=== PATIENT | male | born 1945 | race Caucasian/White ===

== ENCOUNTER 2017-05-22 08:40 | Outpatient (RCR) | payer MEDICARE, BC | END 2017-05-24 | disposition home or self-care (01) | PROVIDERS: ATTEND Nurse Practitioner | DX: M25.511 Pain in right shoulder; Z98.890 Other specified postprocedural states ==

== ENCOUNTER 2017-06-30 13:00 | Outpatient (RCR) | payer MEDICARE, BC | END 2017-08-24 | disposition home or self-care (01) | PROVIDERS: ATTEND Nurse Practitioner | DX: M25.511 Pain in right shoulder (principal); Z98.890 Other specified postprocedural states ==

== ENCOUNTER 2018-05-20 05:06 | Emergency (ER) | payer MEDICARE, BC ==
[~2018-05-20] VITALS: Ht 177.8 cm; Wt 97.5 kg
[2018-05-20] MEDS ORDERED: ONDANSETRON 4 MG (ZOFRAN) ORAL DISSOLVE TAB ONE (05:16)
[2018-05-20] MEDS ORDERED: ONDANSETRON 4 MG (ZOFRAN) ORAL DISSOLVE TAB SL STA (05:19)
[2018-05-20] MEDS ORDERED: ANTACID SUSP 30 ML UDC (MYLANTA) PO ONE (05:30)
[2018-05-20] MEDS ORDERED: LIDOCAINE 2% VISCOUS 15 ML UDC PO ONE (05:30)
[2018-05-20 05:40] LABS: BASOPHILS % (AUTO) 0 % (0-10); EOSINOPHILS # (AUTO) 0.3 10^3/uL (0.0-0.3); EOSINOPHILS % (AUTO) 4 % (0-10); HEMATOCRIT 35 % (40-54); HEMOGLOBIN 12.7 G/DL (13.3-17.7); LYMPHOCYTES # (AUTO) 1.7 X 10^3 (1.0-4.0); LYMPHOCYTES % (AUTO) 22 % (12-44); MEAN CORPUSCULAR HEMOGLOBIN 34 PG (25-34); MEAN CORPUSCULAR HGB CONC 36 G/DL (32-36); MEAN CORPUSCULAR VOLUME 93 FL (80-99); MEAN PLATELET VOLUME 9.3 FL (7.4-10.4); MONOCYTES # (AUTO) 0.6 X 10^3 (0.0-1.0); MONOCYTES % (AUTO) 8 % (0-12); NEUTROPHILS # (AUTO) 5.1 X 10^3 (1.8-7.8); NEUTROPHILS % (AUTO) 66 % (42-75); PLATELET COUNT 186 10^3/uL (130-400); RED BLOOD COUNT 3.77 10^6/uL (4.35-5.85); WHITE BLOOD COUNT 7.7 10^3/uL (4.3-11.0)
[2018-05-20 05:41] LABS: BILIRUBIN,URINE NEGATIVE (NEGATIVE); COLOR,URINE YELLOW; GLUCOSE, URINE (UA) NEGATIVE (NEGATIVE); KETONES,URINE NEGATIVE (NEGATIVE); LEUKOCYTE ESTERASE ,URINE 1+ (NEGATIVE); NITRITE,URINE NEGATIVE (NEGATIVE); PH,URINE 7 (5-9); PROTEIN,URINE 1+ (NEGATIVE); UROBILINOGEN,URINE NORMAL (NORMAL)
[2018-05-20 05:48] LABS: BACTERIA,URINE NEGATIVE /HPF; CLARITY,URINE CLEAR; SQUAMOUS EPITHELIAL CELL,UR RARE /HPF
--- NOTE | 2018-05-20 05:57 | ED Abdominal Pain ---
General Chief Complaint: Abdominal/GI Problems Stated Complaint: ABD PAIN Nursing Triage Note: AMBULATORY TO ED WITH C/O PAIN STARTING MID-EPIGASTRIC THAT RADIATES TO BACK THAT STARTED YESTERDAY. NAUSEA EARLIER THAT IS NOW RESOLVED, DENIES CONSTIPATION OR DIARRHEA. DENIES FEVERS/CHILLS. Sepsis Screen: No Definite Risk Source of Information: Patient Exam Limitations: No Limitations (ИВАН SEWELL MD) History of Present Illness Date Seen by Provider: May 20, 2018 Time Seen by Provider: 05:11 Initial Comments This 73-year-old gentleman presents to the emergency room with epigastric pain radiating to his back. He has had more mild episodes of this pain intermittently over the last month. Pain was fairly consistent yesterday. He rates the pain as 6/10 at its worst. It is now 4-5/10. He had some nausea earlier which has resolved. He denies any constipation or diarrhea. His last bowel movement was about 2 hours prior to arrival. It was normal. He denies any fever. He has darker urine than usual but denies any dysuria or hematuria. Last oral intake was some water and baking soda around 01:00. (ИВАН SEWELL MD) Initial Comments Last BM yesterday normal. Hx CABG on ASA. no Pain radiates to the rear towards back. (RUBÉN DE LA TORRE) Allergies and Home Medications Allergies Coded Allergies: No Known Drug Allergies (Unverified , 05/20/18) Patient Home Medication List Home Medication List Reviewed: Yes (ИВАН SEWELL MD) Home Medication List Reviewed: Yes (RUBÉN DE LA TORRE) Review of Systems Review of Systems Constitutional: no symptoms reported EENTM: No Symptoms Reported Respiratory: No Symptoms Reported Cardiovascular: No Symptoms Reported Gastrointestinal: See HPI Genitourinary: See HPI Musculoskeletal: no symptoms reported Skin: no symptoms reported Psychiatric/Neurological: No Symptoms Reported Endocrine: No Symptoms Reported Hematologic/Lymphatic: No Symptoms Reported (ИВАН SEWELL MD) Past Fkvsfjc-Rdqafy-Hgkdht Hx Past Med/Social Hx: Reviewed and Corrections made (ИВАН SEWELL MD) Patient Social History Alcohol Use: Occasionally Uses Recreational Drug Use: No Smoking Status: Light Tobacco Smoker Type Used: Cigars Recent Foreign Travel: No Contact w/Someone Who Travel: No Recent Infectious Disease Expo: No Recent Hopitalizations: No (ИВАН SEWELL MD) Seasonal Allergies Seasonal Allergies: No (ИВАН SEWELL MD) Past Medical History Surgeries: Yes (BILAT CARPAL TUNNEL, RIGHT ROTATOR CUFF, CABG 15-16 YRS AGO) CABG, Orthopedic Respiratory: No Cardiac: Yes Coronary Artery Disease (status post CABG), Hypertension Neurological: No Genitourinary: No Gastrointestinal: No Musculoskeletal: No Endocrine: Yes (TYPE 2 INSULIN DEPENDENT ) Diabetes, Insulin dep HEENT: No Cancer: No Psychosocial: No Blood Disorders: No (ИВАН SEWELL MD) Physical Exam Vital Signs Vital Signs - First Documented 05/20/18 05:13 Temp 96.5 Pulse 53 Resp 19 B/P (MAP) 144/76 (98) (RUBÉN DE LA TORRE) Vital Signs Capillary Refill : Less Than 3 Seconds (ИВАН SEWELL MD) Height/Weight/BMI Height: 5'10.00" Weight: 215lbs. oz. 97.849277ue; BMI Method:Stated General Appearance: WD/WN, no apparent distress HEENT: PERRL/EOMI, normal ENT inspection Neck: normal inspection Respiratory: lungs clear, normal breath sounds, no respiratory distress, no accessory muscle use Cardiovascular: regular rate, rhythm, no edema, no murmur Gastrointestinal: normal bowel sounds, soft, no organomegaly, no pulsatile mass ; No guarding, No rebound; tenderness (tenderness primarily in the epigastric region and to a lesser extent in the upper quadrants laterally.) Extremities: normal inspection, no pedal edema Neurologic/Psychiatric: sterile tech II-XII nml as tested, no motor/sensory deficits, alert, normal mood/affect, oriented x 3 Skin: normal color, warm/dry (ИВАН SEWELL MD) Progress/Results/Core Measures Results/Orders Lab Results Laboratory Tests Test 05/20/18 05:28 Range/Units White Blood Count 7.7 4.3-11.0 10^3/uL Red Blood Count 3.77 L 4.35-5.85 10^6/uL Hemoglobin 12.7 L 13.3-17.7 G/DL Hematocrit 35 L 40-54 % Mean Corpuscular Volume 93 80-99 FL Mean Corpuscular Hemoglobin 34 25-34 PG Mean Corpuscular Hemoglobin Concent 36 32-36 G/DL Red Cell Distribution Width 13.0 10.0-14.5 % Platelet Count 186 130-400 10^3/uL Mean Platelet Volume 9.3 7.4-10.4 FL Neutrophils (%) (Auto) 66 42-75 % Lymphocytes (%) (Auto) 22 12-44 % Monocytes (%) (Auto) 8 0-12 % Eosinophils (%) (Auto) 4 0-10 % Basophils (%) (Auto) 0 0-10 % Neutrophils # (Auto) 5.1 1.8-7.8 X 10^3 Lymphocytes # (Auto) 1.7 1.0-4.0 X 10^3 Monocytes # (Auto) 0.6 0.0-1.0 X 10^3 Eosinophils # (Auto) 0.3 0.0-0.3 10^3/uL Basophils # (Auto) 0.0 0.0-0.1 10^3/uL Urine Color YELLOW Urine Clarity CLEAR Urine pH 7 5-9 Urine Specific [place] 1.010 L 1.016-1.022 Urine Protein 1+ H NEGATIVE Urine Glucose (UA) NEGATIVE NEGATIVE Urine Ketones NEGATIVE NEGATIVE Urine Nitrite NEGATIVE NEGATIVE Urine Bilirubin NEGATIVE NEGATIVE Urine Urobilinogen NORMAL NORMAL MG/DL Urine Leukocyte Esterase 1+ H NEGATIVE Urine RBC (Auto) NEGATIVE NEGATIVE Urine RBC NONE /HPF Urine WBC NONE /HPF Urine Squamous Epithelial Cells RARE /HPF Urine Crystals NONE /LPF Urine Bacteria NEGATIVE /HPF Urine Casts NONE /LPF Urine Mucus NEGATIVE /LPF Urine Culture Indicated NO Sodium Level 141 135-145 MMOL/L Potassium Level 4.0 3.6-5.0 MMOL/L Chloride Level 106 98-107 MMOL/L Carbon Dioxide Level 24 21-32 MMOL/L Anion Gap 11 5-14 MMOL/L Blood Urea Nitrogen 20 H 7-18 MG/DL Creatinine 1.26 0.60-1.30 MG/DL Estimat Glomerular Filtration Rate 56 BUN/Creatinine Ratio 16 Glucose Level 109 H 70-105 MG/DL Calcium Level 9.6 8.5-10.1 MG/DL Corrected Calcium 9.4 8.5-10.1 MG/DL Total Bilirubin 0.4 0.1-1.0 MG/DL Aspartate Amino Transf (AST/SGOT) 22 5-34 U/L Alanine Aminotransferase (ALT/SGPT) 19 0-55 U/L Alkaline Phosphatase 36 L 40-136 U/L Total Protein 7.2 6.4-8.2 GM/DL Albumin 4.3 3.2-4.5 GM/DL Lipase 26 8-78 U/L (RUBÉN DE LA TORRE) My Orders Orders - RUBÉN DE LA TORRE Ct Abdomen/Pelvis W (05/20/18 06:10) Ondansetron Injection (Zofran Injectio (05/20/18 06:30) Iohexol Injection (Omnipaque 350 Mg/Ml 1 (05/20/18 06:45) Pharmacy Communication (Pharmacy Communi (05/20/18 06:44) Pharmacy Communication (Pharmacy Communi (05/20/18 06:44) Ns (Ivpb) (Sodium Chloride 0.9%) (05/20/18 06:45) Saline Lock/Iv-Start (05/20/18 06:58) Ns Iv 1000 Ml (Sodium Chloride 0.9%) (05/20/18 06:58) Contrast Received (Contrast Received) (05/20/18 07:30) Ketorolac Injection (Toradol Injection) (05/20/18 07:30) Us Gallbladder [id number] (05/20/18 07:25) (RUBÉN DE LA TORRE) Medications Given in ED Current Medications Medications Dose Ordered Sig/Price Route Start Time Stop Time Status Last Admin Dose Admin Al Hydrox/Mg Hydrox/Simethicone 30 ml ONCE ONCE PO 05/20/18 05:30 05/20/18 05:31 DC 05/20/18 05:34 30 ML Iohexol 100 ml ONCE ONCE IV 05/20/18 06:45 05/20/18 07:14 DC 05/20/18 06:48 100 ML Lidocaine HCl 15 ml ONCE ONCE PO 05/20/18 05:30 05/20/18 05:31 DC 05/20/18 05:34 15 ML Ondansetron HCl 4 mg ONCE ONCE IVP 05/20/18 06:30 05/20/18 06:31 DC 05/20/18 06:27 4 MG Sodium Chloride 250 ml ONCE ONCE IV 05/20/18 06:45 05/20/18 07:14 DC 05/20/18 06:49 80 ML (RUBÉN DE LA TORRE) Vital Signs/I&O 9/26/18 05:13 Temp 96.5 Pulse 53 Resp 19 B/P (MAP) 144/76 (98) (RUBÉN DE LA TORRE) Blood Pressure Mean: 98 Progress Progress Note #1: Time: 05:49 Progress Note Labs are pending. Zofran and GI cocktail did not improve pain. Patient still has tenderness in the epigastric region. Pain radiates to the mid back. Progress Note #2: Time: 06:00 Progress Note Labs are still pending. Imaging will be determined after labs are reviewed. Care of this patient was transitioned to Dr. De La Torre at bedside checkout (ИВАН SEWELL MD) Progress Note #1: Progress Note Assumed care of the patient from Dr Latham. I agree with the findings outlined above. The GI cocktail did not help so we will get a CT with Contrast of the Abd/Pelvis to examine the abdpelvic organs and the Abd Aorta. Patient reports the pains been going on for the past month and its not coming with any pattern. Will come at night or during the day but he says is more noticeable at night because is not is distracted. He says it radiates from his epigastric region back to his back. Progress Note #2: Time: 07:23 Progress Note The patient's pain has not changed. Try some Toradol. He did have some more nausea and we are to give him a second dose of Zofran. CT scan is unrevealing. Pushed around on him while he doesn't have a positive Goldberg sign. He does have a little right upper quadrant tenderness so we will elect to do a ultrasound to rule out any other dangerous pathology. If not then we can have him follow-up with his primary care doctor. There is no pattern to his pain such as after meals or with different types of foods. He does have tenderness to palpation midline upper thoracic back so it's possible that instead of this being an epigastric pain radiating to his back is actually having some back pain or that could be secondary. Progress Note #3: Time: 09:54 Progress Note Toradol nearly completely took away his pain. It seems like back pain is a more likely explains his symptoms as CT and ultrasound and labs are unrevealing of any significant pathology. (RUBÉN DE LA TORRE) Diagnostic Imaging Diagonstic Imaging: CT (C/contrast) Plain Films/CT/US/NM/MRI: abdomen, pelvis [facility] [place], [place] NAME: SANTY ALEGRIA [facility] REC#: [id number] PT STATUS: REG ER : 1945 PHYSICIAN: RUBÉN DE LA TORRE MD ADMIT DATE: 05/20/18/ER Draft Date of Exam:05/20/18 CT ABDOMEN/PELVIS W PROCEDURE: CT abdomen and pelvis with contrast. TECHNIQUE: Multiple contiguous axial images were obtained through the abdomen and pelvis after administration of intravenous contrast. INDICATION: Inguinal hernia and abdominal pain There is no focal hepatic or splenic lesion identified. Gallbladder, pancreas and adrenal glands are unremarkable in appearance. There is mild irregularity about renal contours which may be related to scarring from previous infection or other insult, however, no evidence of renal dysfunction or hydronephrosis is identified. There is mild aortoiliac atherosclerotic calcification. The appendix has a normal appearance. There is no free fluid within the abdomen or pelvis. No pathologic adenopathy is identified. Partially opacified urinary bladder demonstrates small right posterolateral diverticulum without evidence of filling defect. There is mild diffuse lumbar spondylosis. IMPRESSION: No CT evidence of acute abnormality in the abdomen or pelvis. In particular, there is no evidence of hernia or bowel obstruction. Dictated on workstation # [id number] Dict: 05/20/18 0654 Trans: 05/20/18 0700 JERRY [id number] Interpreted by: RODOLFO DENNIS MD Electronically signed by: Reviewed: Reviewed by Me Diagonstic Imaging: Ultrasound Plain Films/CT/US/NM/MRI: abdomen (RUQ GB) Comments [facility] [place], [place] NAME: SANTY ALEGRIA [facility] REC#: [id number] PT STATUS: REG ER : 1945 PHYSICIAN: RUBÉN DE LA TORRE MD ADMIT DATE: 05/20/18/ER Draft Date of Exam:05/20/18 US GALLBLADDER [id number] Clinical indication: Patient with abdominal pain. Exam: Ultrasound of the right upper quadrant. Comparison: CT scan of the abdomen and pelvis with contrast dated 05/20/2018. Findings: There is overlying bowel gas which limits evaluation of portions of the abdomen. The liver is partially obscured by overlying bowel gas, but shows no gross liver mass. The liver echogenicity is grossly unremarkable. There is hepatopetal flow in the portal vein. The liver measures 15.9 cm in craniocaudal dimension. There is no significant intra-hepatic or extrahepatic ductal dilation. Common bile duct measures 6.2 mm which is within normal limits for patient's age. Gallbladder is partially obscured by bowel gas. The gallbladder is fluid distended, as noted on the comparison CT scan. There is no significant gallbladder wall thickening or stones. There is no pericholecystic fluid. There is no sonographic Goldberg sign. The pancreatic tail is partially obscured by overlying bowel gas. Otherwise visualized portion of pancreatic head and body are grossly unremarkable. The right kidney shows no significant abnormality with normal anatomic appearance and cortical thickness. There is no mass or hydronephrosis seen. Right kidney measures 11.4 cm in cranial caudal dimension. There is no abdominal ascites. IMPRESSION: 1: Limited exam due to overlying bowel gas. 2: There is no acute or significant abnormality seen on this limited right upper quadrant ultrasound. Dictated on workstation # [id number] Dict: 05/20/18 0857 Trans: 05/20/18 0904 [facility] [id number] Interpreted by: ALVARO BOSE MD Electronically signed by: Reviewed: Reviewed by Me (RUBÉN DE LA TORRE) Departure Impression Primary Impression: Back pain Qualified Codes: M54.5 - Low back pain Additional Impression: Abdominal pain Qualified Codes: R10.13 - Epigastric pain Disposition: 01 HOME, SELF-CARE Condition: Improved Departure-Patient Inst. Decision time for Depature: 09:54 (RUBÉN DE LA TORRE) Referrals: REAL PATINO DO (PCP/Family) Primary Care Physician Patient Instructions: Active Range of Motion Exercises, Back and Hips Add. Discharge Instructions: Try heating pads, icy hot or Biofreeze on your back as well as using Motrin 800 mg 3 times a day for the next week or so. Follow up later this week or early next week with your primary care doctor if not seeing some improvement for further evaluation. If you begin to have severe intractable pain nausea vomiting or fever then return to the ER immediately. All discharge instructions reviewed with patient and/or family. Voiced understanding. Copy Copies To 1: REAL PATINO JOSHUA T MD May 20, 2018 05:57 RUBÉN DE LA TORRE May 20, 2018 06:09
[2018-05-20 06:01] LABS: ALBUMIN 4.3 GM/DL (3.2-4.5); BILIRUBIN,TOTAL 0.4 MG/DL (0.1-1.0); CALCIUM 9.6 MG/DL (8.5-10.1); CREATININE SERUM 1.26 MG/DL (0.60-1.30); TOTAL PROTEIN 7.2 GM/DL (6.4-8.2)
[2018-05-20] MEDS ORDERED: ONDANSETRON 4 MG/2 ML (SDV) Z0FRAN IVP ONE (06:30)
[2018-05-20] MEDS ORDERED: NS 250 ML (IVPB) BAG IV ONE (06:45)
[2018-05-20] MEDS ORDERED: IOHEXOL 350 MG/ML 100 ML (OMNIPAQUE 350) VIAL IV ONE (06:45)
[2018-05-20] MEDS ORDERED: NS IV 1000 ML 1,000 ML IV SCH (06:58)
--- NOTE | 2018-05-20 07:00 | Diagnostic Imaging Report ---
PROCEDURE: CT abdomen and pelvis with contrast. TECHNIQUE: Multiple contiguous axial images were obtained through the abdomen and pelvis after administration of intravenous contrast. INDICATION: Inguinal hernia and abdominal pain There is no focal hepatic or splenic lesion identified. Gallbladder, pancreas and adrenal glands are unremarkable in appearance. There is mild irregularity about renal contours which may be related to scarring from previous infection or other insult, however, no evidence of renal dysfunction or hydronephrosis is identified. There is mild aortoiliac atherosclerotic calcification. The appendix has a normal appearance. There is no free fluid within the abdomen or pelvis. No pathologic adenopathy is identified. Partially opacified urinary bladder demonstrates small right posterolateral diverticulum without evidence of filling defect. There is mild diffuse lumbar spondylosis. IMPRESSION: No CT evidence of acute abnormality in the abdomen or pelvis. In particular, there is no evidence of hernia or bowel obstruction. Dictated by: Dictated on workstation # [id number]
[2018-05-20] MEDS ORDERED: RECEIVED CONTRAST (Hold Metformin) IV SCH (07:30)
[2018-05-20] MEDS ORDERED: KETOROLAC 30 MG/ML VIAL IVP ONE (07:30)
--- NOTE | 2018-05-20 09:04 | Diagnostic Imaging Report ---
Clinical indication: Patient with abdominal pain. Exam: Ultrasound of the right upper quadrant. Comparison: CT scan of the abdomen and pelvis with contrast dated 05/20/2018. Findings: There is overlying bowel gas which limits evaluation of portions of the abdomen. The liver is partially obscured by overlying bowel gas, but shows no gross liver mass. The liver echogenicity is grossly unremarkable. There is hepatopetal flow in the portal vein. The liver measures 15.9 cm in craniocaudal dimension. There is no significant intra-hepatic or extrahepatic ductal dilation. Common bile duct measures 6.2 mm which is within normal limits for patient's age. Gallbladder is partially obscured by bowel gas. The gallbladder is fluid distended, as noted on the comparison CT scan. There is no significant gallbladder wall thickening or stones. There is no pericholecystic fluid. There is no sonographic Goldberg sign. The pancreatic tail is partially obscured by overlying bowel gas. Otherwise visualized portion of pancreatic head and body are grossly unremarkable. The right kidney shows no significant abnormality with normal anatomic appearance and cortical thickness. There is no mass or hydronephrosis seen. Right kidney measures 11.4 cm in cranial caudal dimension. There is no abdominal ascites. IMPRESSION: 1: Limited exam due to overlying bowel gas. 2: There is no acute or significant abnormality seen on this limited right upper quadrant ultrasound. Dictated by: Dictated on workstation # [id number]
[2018-05-20 10:11] VITALS: BP 142/77
== END 2018-05-20 10:11 | disposition home or self-care (01) ==
LOC: EDUNIT# 05:06 → ER 05:08
DX: M54.5 Low back pain (principal); R10.13 Epigastric pain; I25.10 Atherosclerotic heart disease of native coronary artery without angina pectoris; I10 Essential (primary) hypertension; E11.9 Type 2 diabetes mellitus without complications; F17.290 Nicotine dependence, other tobacco product, uncomplicated; Z95.1 Presence of aortocoronary bypass graft
CPT/HCPCS: 36415; 74177; 76705; 80053; 81000; 83690; 85025

== ENCOUNTER 2019-01-09 20:21 | Emergency (ER) | payer MEDICARE, BC ==
[~2019-01-09] VITALS: Ht 177.8 cm; Wt 95.3 kg
[2019-01-09] MEDS ORDERED: DEXTROSE 50% 50 ML (IMS) SYR IV ONE (20:30)
[2019-01-09 20:37] LABS: BASOPHILS % (AUTO) 0 % (0-10); EOSINOPHILS # (AUTO) 0.3 10^3/uL (0.0-0.3); EOSINOPHILS % (AUTO) 3 % (0-10); HEMATOCRIT 39 % (40-54); HEMOGLOBIN 13.4 G/DL (13.3-17.7); LYMPHOCYTES # (AUTO) 3.6 X 10^3 (1.0-4.0); LYMPHOCYTES % (AUTO) 42 % (12-44); MEAN CORPUSCULAR HEMOGLOBIN 32 PG (25-34); MEAN CORPUSCULAR HGB CONC 35 G/DL (32-36); MEAN CORPUSCULAR VOLUME 92 FL (80-99); MONOCYTES % (AUTO) 11 % (0-12); NEUTROPHILS # (AUTO) 3.8 X 10^3 (1.8-7.8); NEUTROPHILS % (AUTO) 44 % (42-75); PLATELET COUNT 286 10^3/uL (130-400); RED CELL DISTRIBUTION WIDTH 13.1 % (10.0-14.5); WHITE BLOOD COUNT 8.7 10^3/uL (4.3-11.0)
--- NOTE | 2019-01-09 20:46 | NUR ---
meal tray provided, pt denies other needs at this time.
--- NOTE | 2019-01-09 20:57 | NUR ---
Patient eating general diet tray.
[2019-01-09 21:01] LABS: ALBUMIN 4.5 GM/DL (3.2-4.5); BILIRUBIN,TOTAL 0.4 MG/DL (0.1-1.0); CALCIUM 10.4 MG/DL (8.5-10.1); CREATININE SERUM 1.39 MG/DL (0.60-1.30); POTASSIUM 3.8 MMOL/L (3.6-5.0); TOTAL PROTEIN 7.8 GM/DL (6.4-8.2)
[2019-01-09 21:35] LABS: BILIRUBIN,URINE NEGATIVE (NEGATIVE); CLARITY,URINE CLEAR; COLOR,URINE YELLOW; GLUCOSE, URINE (UA) 2+ (NEGATIVE); KETONES,URINE NEGATIVE (NEGATIVE); LEUKOCYTE ESTERASE ,URINE NEGATIVE (NEGATIVE); NITRITE,URINE NEGATIVE (NEGATIVE); PH,URINE 5 (5-9); PROTEIN,URINE NEGATIVE (NEGATIVE); UROBILINOGEN,URINE NORMAL (NORMAL)
[2019-01-09 21:42] LABS: BACTERIA,URINE NEGATIVE /HPF; WBC,URINE RARE /HPF
--- NOTE | 2019-01-09 22:18 | ED General ---
General Chief Complaint: Glucose Problems Stated Complaint: BLOOD SUGAR LEVELS Nursing Triage Note: pt was found on the ground today. pt is a diabetic with insulin. pt has a blood sugar of 30 upon arrival. pt denies n/v/d/fever. pt was unwitnessed on the floor when family got home. pt unsure of how he got on the floor. unknown loc or head injury. Nursing Sepsis Screen: No Definite Risk Source of Information: Patient Exam Limitations: No Limitations History of Present Illness Date Seen by Provider: January 09, 2019 Time Seen by Provider: 20:23 Initial Comments This 73-year-old gentleman presents to the emergency room with his after being found on the floor and hypoglycemic. Patient is diaphoretic and confused. Blood sugar on arrival is 24. Patient is a diabetic who uses insulin. He has not eaten supper yet but may have taken his insulin. His was not home at the time of the incident but found him on the floor when she came home. Patient denies any pain. He is responding appropriately to questions but is sluggish. Patient has been experiencing intentional weight loss recently but denies any acute symptoms of illness. He has had multiple hypoglycemic episodes in the last year. Allergies and Home Medications Allergies Coded Allergies: No Known Drug Allergies (Unverified , 05/20/18) Patient Home Medication List Home Medication List Reviewed: Yes Review of Systems Review of Systems Constitutional: see HPI, diaphoresis, weakness, weight loss EENTM: no symptoms reported Respiratory: no symptoms reported Cardiovascular: no symptoms reported Gastrointestinal: no symptoms reported Genitourinary: no symptoms reported Musculoskeletal: no symptoms reported Skin: see HPI Psychiatric/Neurological: See HPI Hematologic/Lymphatic: No Symptoms Reported Past Cnnpdmp-Jgjcas-Wwghms Hx Past Med/Social Hx: Reviewed Nursing Past Med/Soc Hx Patient Social History Alcohol Use: Denies Use Recreational Drug Use: No Type Used: Cigars Recent Foreign Travel: No Contact w/Someone Who Travel: No Recent Infectious Disease Expo: No Recent Hopitalizations: No Physical Abuse: No Sexual Abuse: No Mistreated: No Fear: No Seasonal Allergies Seasonal Allergies: No Past Medical History Surgeries: Yes (BILAT CARPAL TUNNEL, RIGHT ROTATOR CUFF, CABG 15-16 YRS AGO) CABG, Orthopedic Respiratory: No Cardiac: Yes Coronary Artery Disease, Hypertension Neurological: No Genitourinary: No Gastrointestinal: No Musculoskeletal: No Endocrine: Yes (TYPE 2 INSULIN DEPENDENT ) Diabetes, Insulin dep HEENT: No Cancer: No Psychosocial: No Blood Disorders: No Physical Exam Vital Signs Vital Signs - First Documented 01/09/19 20:28 Temp 97.6 Pulse 61 Resp 13 B/P (MAP) 120/67 (84) Pulse Ox 95 O2 Delivery Room Air Capillary Refill : Less Than 3 Seconds Height, Weight, BMI Height: 5'10.00" Weight: 210lbs. oz. 95.881347es; BMI Method:Stated General Appearance: No Apparent Distress, WD/WN HEENT: PERRL/EOMI, Normal ENT Inspection Neck: Normal Inspection, Non Tender Respiratory: Lungs Clear, Normal Breath Sounds, No Accessory Muscle Use, No Respiratory Distress Cardiovascular: Regular Rate, Rhythm, No Edema, No Murmur Gastrointestinal: Non Tender, Soft Extremity: Normal Inspection, No Pedal Edema Neurologic/Psychiatric: Alert, Oriented x3, No Motor/Sensory Deficits, Normal Mood/Affect, fitness and wellness manager II-XII Norm as Tested, Other (mentation initially sluggish but returns to normal immediately after administration of D50) Skin: Normal Color, Damp Progress/Results/Core Measures Suspected Sepsis Recent Fever Within 48 Hours: No Infection Criteria Present: None New/Unexplained Altered Menta: No Sepsis Screen: No Definite Risk SIRS Temperature:97.6 Pulse: 61 Respiratory Rate: 13 Laboratory Tests 01/09/19 20:29: White Blood Count 8.7 Blood Pressure 120 /67 Mean: 84 Laboratory Tests 01/09/19 20:29: Creatinine 1.39H, Platelet Count 286, Total Bilirubin 0.4 Results/Orders Lab Results Laboratory Tests Test 01/09/19 20:24 01/09/19 20:29 01/09/19 20:32 01/09/19 20:51 Range/Units Glucometer 30 *L 24 *L 147 H 70-110 MG/DL White Blood Count 8.7 4.3-11.0 10^3/uL Red Blood Count 4.23 L 4.35-5.85 10^6/uL Hemoglobin 13.4 13.3-17.7 G/DL Hematocrit 39 L 40-54 % Mean Corpuscular Volume 92 80-99 FL Mean Corpuscular Hemoglobin 32 25-34 PG Mean Corpuscular Hemoglobin Concent 35 32-36 G/DL Red Cell Distribution Width 13.1 10.0-14.5 % Platelet Count 286 130-400 10^3/uL Mean Platelet Volume 9.0 7.4-10.4 FL Neutrophils (%) (Auto) 44 42-75 % Lymphocytes (%) (Auto) 42 12-44 % Monocytes (%) (Auto) 11 0-12 % Eosinophils (%) (Auto) 3 0-10 % Basophils (%) (Auto) 0 0-10 % Neutrophils # (Auto) 3.8 1.8-7.8 X 10^3 Lymphocytes # (Auto) 3.6 1.0-4.0 X 10^3 Monocytes # (Auto) 1.0 0.0-1.0 X 10^3 Eosinophils # (Auto) 0.3 0.0-0.3 10^3/uL Basophils # (Auto) 0.0 0.0-0.1 10^3/uL Sodium Level 142 135-145 MMOL/L Potassium Level 3.8 3.6-5.0 MMOL/L Chloride Level 108 H 98-107 MMOL/L Carbon Dioxide Level 21 21-32 MMOL/L Anion Gap 13 5-14 MMOL/L Blood Urea Nitrogen 27 H 7-18 MG/DL Creatinine 1.39 H 0.60-1.30 MG/DL Estimat Glomerular Filtration Rate 50 BUN/Creatinine Ratio 19 Glucose Level 25 *L 70-105 MG/DL Calcium Level 10.4 H 8.5-10.1 MG/DL Corrected Calcium 10.0 8.5-10.1 MG/DL Total Bilirubin 0.4 0.1-1.0 MG/DL Aspartate Amino Transf (AST/SGOT) 29 5-34 U/L Alanine Aminotransferase (ALT/SGPT) 22 0-55 U/L Alkaline Phosphatase 44 40-136 U/L Total Protein 7.8 6.4-8.2 GM/DL Albumin 4.5 3.2-4.5 GM/DL Test 01/09/19 21:27 01/09/19 21:28 01/09/19 22:01 Range/Units Glucometer 87 94 70-110 MG/DL Urine Color YELLOW Urine Clarity CLEAR Urine pH 5 5-9 Urine Specific [place] 1.015 L 1.016-1.022 Urine Protein NEGATIVE NEGATIVE Urine Glucose (UA) 2+ H NEGATIVE Urine Ketones NEGATIVE NEGATIVE Urine Nitrite NEGATIVE NEGATIVE Urine Bilirubin NEGATIVE NEGATIVE Urine Urobilinogen NORMAL NORMAL MG/DL Urine Leukocyte Esterase NEGATIVE NEGATIVE Urine RBC (Auto) NEGATIVE NEGATIVE Urine RBC NONE /HPF Urine WBC RARE /HPF Urine Crystals NONE /LPF Urine Bacteria NEGATIVE /HPF Urine Casts NONE /LPF Urine Mucus NEGATIVE /LPF Urine Culture Indicated NO My Orders Orders - ИВАН SEWELL MD Cbc With Automated Diff (01/09/19 20:25) Comprehensive Metabolic Panel (01/09/19 20:25) Ua Culture If Indicated (01/09/19 20:25) Accucheck Stat ONCE (01/09/19 20:25) Ed Iv/Invasive Line Start (01/09/19 20:25) D50w (Emergency) Syringe (Dextrose 50% 5 (01/09/19 20:30) General/Regular (01/09/19 Dinner) Accucheck Stat ONCE (01/09/19 20:36) Accucheck Stat ONCE (01/09/19 21:25) Accucheck Stat ONCE (01/09/19 21:29) Medications Given in ED Vital Signs/I&O Capillary Refill : Less Than 3 Seconds Blood Pressure Mean: 84 Point of Care Testing Finger Stick Blood Glucose: 147 Blood Glucose Action Taken: erp notified Progress Note : Progress Note There was no evidence of trauma and patient complained of no pain. An amp of D50 was immediately administered with immediate response. Patient became more alert and mentation became brisk. Patient believes insulin requirements are decreasing due to his recent intentional weight loss. Additionally, he may have taken his insulin before meal time but did not eat before he became hypoglycemic. Patient was given a meal and sugary drinks. Blood sugar was checked multiple times and found to be stable. Patient was advised to skip his long-acting insulin tonight and to follow up promptly with his primary care provider for further instructions. Departure Impression Primary Impression: Hypoglycemia associated with diabetes Additional Impression: Altered mental status Qualified Codes: R41.0 - Disorientation, unspecified Disposition: 01 HOME, SELF-CARE Condition: Improved Departure-Patient Inst. Decision time for Depature: 22:17 Referrals: REAL CARBALLO DO (PCP/Family) Primary Care Physician Patient Instructions: Low Blood Sugar in People With Diabetes Add. Discharge Instructions: Check your blood sugar when you return home. Eat something sugary or starchy tonight before going to bed. Keep something sugary with you at the bedside in case she have problems in the night. Do not take your long-acting insulin tonight. Then reduce your insulin doses by 20 percent until you can follow-up with Dr. Carballo. Return to care if you have worsening symptoms. Facet an alarm to wake up every few hours tonight to check your blood sugar. All discharge instructions reviewed with patient and/or family. Voiced understanding. Copy Copies To 1: REAL CARBALLO JOSHUA T MD January 09, 2019 22:18
[2019-01-09 22:33] VITALS: BP 164/68
== END 2019-01-09 22:40 | disposition home or self-care (01) ==
LOC: EDUNIT# 20:21 → ER 20:22
DX: E11.649 Type 2 diabetes mellitus with hypoglycemia without coma (principal); R41.82 Altered mental status, unspecified; G56.03 Carpal tunnel syndrome, bilateral upper limbs; I10 Essential (primary) hypertension; I25.10 Atherosclerotic heart disease of native coronary artery without angina pectoris; Z95.1 Presence of aortocoronary bypass graft; Z79.4 Long term (current) use of insulin
CPT/HCPCS: 36415; 80053; 81000; 82962; 85025

== ENCOUNTER → 2019-01-15 | Outpatient (CLI) | payer MEDICARE, BC ==
[~2019-01-15] VITALS: Ht 177.8 cm; Wt 95.3 kg
[~2019-01-15] MED LIST: CATHETER FLUSH 10 ML SYR IV PRN
[2019-01-15 08:08] VITALS: BP 130/67
[2019-01-15 08:14] VITALS: BP 172/75
[2019-01-15 08:15] VITALS: BP 187/69
[2019-01-15 08:16] VITALS: BP 211/75
--- NOTE | 2019-01-15 21:58 | STRESS TEST ---
DATE OF SERVICE: 01/15/2019 NUCLEAR MYOVIEW REPORT REFERRING PHYSICIAN: Rogerio Carballo DO SUMMARY: The patient was injected with 10.88 mCi of technetium-99 Myoview and the resting images were obtained with peak stress level, a 32.1 mCi of technetium-99 Myoview and the stress images were acquired. The resting and stress images were reviewed and compared in the short axis, horizontal long axis, and vertical long axis views. Review of the images showed the diaphragmatic attenuation with typical male pattern with no significant ischemia or infarction. SSS is 2, SDS 2, TID value 0.97. On the gated images, the left ventricle appeared to be normal size with normal contractility. Calculated ejection fraction 56%. CONCLUSION: 1. Typical male pattern with no significant ischemia or infarction on SPECT images. 2. Normal left ventricular size with normal contractility. Calculated ejection fraction 56%. Job ID: [id number] DocumentID: [id number] Dictated Date: 01/15/2019 16:18:39 Final Inspector Date: 01/15/2019 21:57:32 Dictated By: SAM SANCHEZ MD
== END ==
LOC: CARD 06:29
PROVIDERS: ATTEND Internal Medicine
DX: I25.10 Atherosclerotic heart disease of native coronary artery without angina pectoris (principal)
CPT/HCPCS: 78452; 93017

== ENCOUNTER → 2020-04-24 | Outpatient (CLI) | payer MEDICARE, BC ==
--- NOTE | 2020-04-24 13:00 | Diagnostic Imaging Report ---
INDICATION: Pain. 3 views were obtained FINDINGS: There is a mildly comminuted and slightly displaced transverse fracture through the mid diaphysis of the proximal phalanx left 5th toe. There is no other fracture or dislocation. Soft tissues are unremarkable IMPRESSION: Slightly displaced fracture involving the proximal phalanx left 5th toe. Dictated by: Dictated on workstation # [id number]
== END ==
LOC: RAD 11:04
PROVIDERS: ATTEND Internal Medicine
DX: S92.512A Displaced fracture of proximal phalanx of left lesser toe(s), initial encounter for closed fracture (principal); X58.XXXA Exposure to other specified factors, initial encounter
CPT/HCPCS: 73630

== ENCOUNTER 2020-05-15 21:34 | Emergency (ER) | payer MEDICARE, BC ==
[~2020-05-15] VITALS: Ht 177 cm; Wt 89.0 kg
--- NOTE | 2020-05-15 21:47 | ED General ---
General Stated Complaint: HYPOGLYCEMIA Source of Information: Patient, EMS History of Present Illness Date Seen by Provider: May 15, 2020 Time Seen by Provider: 21:35 Initial Comments PT ARRIVES VIA EMS FROM HOME EMS CALLED FOR PT UNRESPONSIVE, WITH BLOOD GLUCOSE OF 26 BY AND BY EMS, THEN DROPPED TO 20 EMS STATES PT WAS AWAKE WHEN THEY ARRIVED, BUT QUICKLY BECAME UNRESPONSIVE, SO THEY GAVE PT A PEANUT BUTTER SANDWICH AND SOME SPRITE, BLOOD SUGAR DROPPED TO 20, AND THEN GAVE PT ORAL GLUCOSE 24 GM, WITHOUT IMPROVEMENT, SO THEN EMS STARTED IV OF D 10, AND HAS RECEIVED 25 GRAMS OF IT PRIOR TO ARRIVAL. PT IS NOW AWAKE, ALERT, TALKING NORMALLY, AND LAST BLOOD GLUCOSE FOR EMS WAS 132. PT HAS NO COMPLAINTS OF ANY KIND AT THIS TIME NO RECENT ILLNESS, PER EMS AND PER PT PT STATES THIS EVENING HE WAS TURNING THE CRANK ON AN AWNING, AND DOES NOT REALLY REMEMBER ANYTHING AFTER THAT REPORTED TO EMS THAT PT HAD 20 UNITS OF HUMALOG AT 1700, AND HE ATE AT 1730--PT HAS NO IDEA WHAT HE ATE TONIGHT, AND IT WAS NOT REPORTED TO EMS WHAT / HOW MUCH HE HAD EATEN PT WITH HISTORY OF HTN--BP 230/102 FOR EMS, HR IN 70'S PER OLD RECORDS, PT HAS HAD THIS MULTIPLE TIMES. PT LATER REPORTS THAT HE HAS INTENTIONALLY LOST APPROXIMATELY 30 LBS IN THE LAST FEW MONTHS, HAS BEEN EXERCISING MORE, AND HAS NOT HAD ANY CHANGES IN HIS INSULIN DOSE--THIS IS THE SAME STORY HE REPORTED AT HIS LAST ER VISIT HERE IN 2019 FOR THE EXACT SAME THING PCP: DR. PATINO Allergies and Home Medications Allergies Coded Allergies: No Known Drug Allergies (Unverified , 05/20/18) Patient Home Medication List Home Medication List Reviewed: Yes Review of Systems Review of Systems Constitutional: see HPI, diaphoresis Respiratory: no symptoms reported Cardiovascular: no symptoms reported Gastrointestinal: no symptoms reported; No abdominal pain, No nausea, No vomiting Genitourinary: no symptoms reported Musculoskeletal: other (PT STATES HE STUBBED HIS LEFT 5TH TOE A WEEK OR TWO AGO, AND HAS BEEN SEEN BY DR. SÁNCHEZ FOR IT--IS HEALING WELL AT THIS POINT--IS NOT DANA TAPED AND BRUISING IS ALMOST GONE. ) Skin: no symptoms reported Psychiatric/Neurological: See HPI Hematologic/Lymphatic: No Symptoms Reported Immunological/Allergic: no symptoms reported Past Apmyzbj-Vmlcdb-Qgwdgp Hx Past Med/Social Hx: Reviewed and Corrections made Patient Social History Type Used: Cigars Recent Hopitalizations: No Seasonal Allergies Seasonal Allergies: No Past Medical History Surgeries: Yes (BILAT CARPAL TUNNEL, RIGHT ROTATOR CUFF, 3 VESSEL CABG 15-16 YRS AGO) Cardiac, CABG, Orthopedic Respiratory: No Cardiac: Yes (S/P 3-VESSEL CABG 2002) Coronary Artery Disease, Hypertension Neurological: Yes (PERIPHERAL NEUROPATHY) Neuropathy Genitourinary: No Gastrointestinal: No Musculoskeletal: No Endocrine: Yes (TYPE 2 INSULIN DEPENDENT ) Diabetes, Insulin dep HEENT: No Cancer: No Psychosocial: No Blood Disorders: No Physical Exam Vital Signs Vital Signs - First Documented 05/15/20 21:35 Temp 35.8 Pulse 73 Resp 18 B/P (MAP) 223/103 (143) Pulse Ox 97 O2 Delivery Room Air Capillary Refill : Height, Weight, BMI Height: 5'10.00" Weight: 210lbs. 0.0oz. 95.011360yc; 30.1 BMI Method:Stated General Appearance: No Apparent Distress, WD/WN, Other (PT AWAKE, ALERT, ORIENTED X 3--BUT DOES NOT RECALL EVENTS OF THIS EVENING WHEN BLOOD GLUCOSE WAS LOW. PT WITH CLOTHING SATURATED FROM SWEAT. ) HEENT: PERRL/EOMI Neck: Normal Inspection Respiratory: Normal Breath Sounds, No Accessory Muscle Use, No Respiratory Distress Cardiovascular: Regular Rate, Rhythm, No Edema, No Murmur, Normal Peripheral Pulses Gastrointestinal: Non Tender, Soft Extremity: Normal Inspection Neurologic/Psychiatric: Alert, Oriented x3, No Motor/Sensory Deficits, Normal Mood/Affect, blankbook forwarder II-XII Norm as Tested Skin: Normal Color, Cool, Damp Progress/Results/Core Measures Suspected Sepsis SIRS Temperature: Pulse: Respiratory Rate: Laboratory Tests 05/15/20 21:50: White Blood Count 13.5H Blood Pressure / Mean: Laboratory Tests 05/15/20 21:50: Creatinine 1.30, Platelet Count 198, Total Bilirubin 0.4 Results/Orders Lab Results Laboratory Tests Test 05/15/20 21:40 05/15/20 21:50 05/15/20 22:13 05/15/20 22:47 Range/Units Glucometer 86 136 H 70-110 MG/DL White Blood Count 13.5 H 4.3-11.0 10^3/uL Red Blood Count 4.09 L 4.35-5.85 10^6/uL Hemoglobin 13.1 L 13.3-17.7 G/DL Hematocrit 38 L 40-54 % Mean Corpuscular Volume 92 80-99 FL Mean Corpuscular Hemoglobin 32 25-34 PG Mean Corpuscular Hemoglobin Concent 35 32-36 G/DL Red Cell Distribution Width 13.1 10.0-14.5 % Platelet Count 198 130-400 10^3/uL Mean Platelet Volume 9.9 7.4-10.4 FL Neutrophils (%) (Auto) 79 H 42-75 % Lymphocytes (%) (Auto) 11 L 12-44 % Monocytes (%) (Auto) 8 0-12 % Eosinophils (%) (Auto) 2 0-10 % Basophils (%) (Auto) 0 0-10 % Neutrophils # (Auto) 10.6 H 1.8-7.8 X 10^3 Lymphocytes # (Auto) 1.5 1.0-4.0 X 10^3 Monocytes # (Auto) 1.1 H 0.0-1.0 X 10^3 Eosinophils # (Auto) 0.2 0.0-0.3 10^3/uL Basophils # (Auto) 0.0 0.0-0.1 10^3/uL Sodium Level 142 135-145 MMOL/L Potassium Level 4.1 3.6-5.0 MMOL/L Chloride Level 108 H 98-107 MMOL/L Carbon Dioxide Level 23 21-32 MMOL/L Anion Gap 11 5-14 MMOL/L Blood Urea Nitrogen 15 7-18 MG/DL Creatinine 1.30 0.60-1.30 MG/DL Estimat Glomerular Filtration Rate 54 BUN/Creatinine Ratio 12 Glucose Level 99 70-105 MG/DL Calcium Level 9.4 8.5-10.1 MG/DL Corrected Calcium 9.2 8.5-10.1 MG/DL Total Bilirubin 0.4 0.1-1.0 MG/DL Aspartate Amino Transf (AST/SGOT) 26 5-34 U/L Alanine Aminotransferase (ALT/SGPT) 21 0-55 U/L Alkaline Phosphatase 40 40-136 U/L Total Protein 7.3 6.4-8.2 GM/DL Albumin 4.3 3.2-4.5 GM/DL Urine Color YELLOW Urine Clarity CLEAR Urine pH 5.5 5-9 Urine Specific [place] 1.010 L 1.016-1.022 Urine Protein 1+ H NEGATIVE Urine Glucose (UA) NEGATIVE NEGATIVE Urine Ketones NEGATIVE NEGATIVE Urine Nitrite NEGATIVE NEGATIVE Urine Bilirubin NEGATIVE NEGATIVE Urine Urobilinogen 0.2 < = 1.0 MG/DL Urine Leukocyte Esterase NEGATIVE NEGATIVE Urine RBC (Auto) NEGATIVE NEGATIVE Urine RBC NONE /HPF Urine WBC NONE /HPF Urine Squamous Epithelial Cells 0-2 /HPF Urine Crystals NONE /LPF Urine Bacteria NEGATIVE /HPF Urine Casts NONE /LPF Urine Mucus SMALL H /LPF Urine Culture Indicated NO My Orders Orders - GERI BHAGAT DO Accucheck Stat ONCE (05/15/20 21:41) Ed Iv/Invasive Line Start (05/15/20 21:41) Monitor-Rhythm Ecg Trace Only (05/15/20 21:41) Cbc With Automated Diff (05/15/20 21:41) Comprehensive Metabolic Panel (05/15/20 21:41) Ua Culture If Indicated (05/15/20 21:41) General/Regular (05/16/20 Breakfast) Hydralazine Injection (Apresoline Inject (05/15/20 22:00) Accucheck Stat ONCE (05/15/20 22:41) Accucheck Stat ONCE (05/15/20 23:09) Medications Given in ED Current Medications Medications Dose Ordered Sig/Price Route Start Time Stop Time Status Last Admin Dose Admin Hydralazine HCl 10 mg ONCE ONCE IV 05/15/20 22:00 05/15/20 22:01 DC 05/15/20 21:55 10 MG Vital Signs/I&O 05/15/20 05/15/20 05/15/20 21:35 22:59 23:38 Temp 35.8 Pulse 73 81 72 Resp 18 18 16 B/P (MAP) 223/103 (143) 189/87 (121) 170/73 (105) Pulse Ox 97 98 99 O2 Delivery Room Air Room Air Room Air Capillary Refill : Progress Note : Progress Note ACCUCHECK 86 ON ARRIVAL D10 INFUSION THAT WAS STARTED BY EMS WAS CONTINUED, AND PT WAS GIVEN A SANDWICH TRAY TO EAT. PT WAS HELD IN ER AND OBSERVED, AND REPEAT ACCUCHECKS DONE NO DETERIORATION IN PT'S CONDITION REPEAT ACCUCHECK AT 2245--136 2245--RN HAS TALKED WITH , WHO REPORTS THAT PT HAS GRADUALLY BECOMING MORE FORGETFUL, AND SUSPECTS THAT HE MISTAKENLY TOOK HIS INSULIN TWICE. SHE STATES THAT HE HAD A SALAD, FISH, 1/2 OF A ROLL, AND SOMETHING ELSE FOR DINNER, THEN ATE A WHOLE PIECE OF PIE, AND CHOCOLATE COVERED BLUEBERRIES AFTER DINNER. SHE REPORTED TO RN THAT HE IS INDEPENDENT ON TAKING HIS MEDICATIONS--IT WAS RECOMMENDED TO BY THE RN, THAT SHE NEEDS TO START MONITORING HIS MEDICATIONS. PT ALSO GIVEN HYDRALAZINE FOR ELEVATED BLOOD PRESSURE--223/103 ON ARRIVAL. BP DOWN PRIOR TO DISMISSAL TO 180'S / 80'S REPEAT ACCUCHECK AT 2330--258 Departure Impression Primary Impression: HYPOGLYCEMIA WITH INSULIN DEPENDENT TYPE 2 DIABETES Additional Impression: Uncontrolled hypertension Disposition: HOME, SELF-CARE Condition: Improved Departure-Patient Inst. Referrals: REAL PATINO DO (PCP/Family) Primary Care Physician Patient Instructions: High Blood Pressure (DC), Low Blood Sugar in People With Diabetes Add. Discharge Instructions: CHECK YOUR BLOOD SUGAR AT LEAST 4 TIMES A DAY--BEFORE EACH MEAL AND AT BEDTIME HAVE SOMEONE CHECK YOUR INSULIN DOSAGE WITH YOU BEFORE YOU TAKE IT INCREASE YOUR PROTEIN IN YOUR DIET FOLLOW UP WITH DR. PATINO THIS WEEK FOR FURTHER CARE GERI BHAGAT DO May 15, 2020 21:47
[2020-05-15] MEDS ORDERED: hydrALAZINE (APESOLINE) 20 MG/ML VIAL IV ONE (22:00)
[2020-05-15 22:20] LABS: BILIRUBIN,URINE NEGATIVE (NEGATIVE); CLARITY,URINE CLEAR; COLOR,URINE YELLOW; GLUCOSE, URINE (UA) NEGATIVE (NEGATIVE); KETONES,URINE NEGATIVE (NEGATIVE); LEUKOCYTE ESTERASE ,URINE NEGATIVE (NEGATIVE); NITRITE,URINE NEGATIVE (NEGATIVE); PH,URINE 5.5 (5-9); PROTEIN,URINE 1+ (NEGATIVE)
--- NOTE | 2020-05-15 22:21 | NUR ---
Pt arrives by EMS with a hypoglycemic event at home; EMS reports they were called for an unresponsive patient. When they arrived pt's FSBS was 28, then dropped to 20 despite oral glucose. They report they started D10. Pt is A&Ox3 but is confused as to the events that brought him in tonight. Pt denies pain. Pt does tell this nurse that he has started exercising recently and has lost almost 30lbs but they have not adjusted his medications. Food tray provided to patient. Pt eating well; will continue to monitor.
[2020-05-15 22:25] LABS: BASOPHILS % (AUTO) 0 % (0-10); EOSINOPHILS # (AUTO) 0.2 10^3/uL (0.0-0.3); EOSINOPHILS % (AUTO) 2 % (0-10); HEMATOCRIT 38 % (40-54); HEMOGLOBIN 13.1 G/DL (13.3-17.7); LYMPHOCYTES # (AUTO) 1.5 X 10^3 (1.0-4.0); LYMPHOCYTES % (AUTO) 11 % (12-44); MEAN CORPUSCULAR HEMOGLOBIN 32 PG (25-34); MEAN CORPUSCULAR HGB CONC 35 G/DL (32-36); MEAN CORPUSCULAR VOLUME 92 FL (80-99); MEAN PLATELET VOLUME 9.9 FL (7.4-10.4); MONOCYTES # (AUTO) 1.1 X 10^3 (0.0-1.0); MONOCYTES % (AUTO) 8 % (0-12); NEUTROPHILS # (AUTO) 10.6 X 10^3 (1.8-7.8); NEUTROPHILS % (AUTO) 79 % (42-75); PLATELET COUNT 198 10^3/uL (130-400); WHITE BLOOD COUNT 13.5 10^3/uL (4.3-11.0)
[2020-05-15 22:29] LABS: ALBUMIN 4.3 GM/DL (3.2-4.5); POTASSIUM 4.1 MMOL/L (3.6-5.0)
[2020-05-15 22:30] LABS: CALCIUM 9.4 MG/DL (8.5-10.1)
[2020-05-15 22:31] LABS: TOTAL PROTEIN 7.3 GM/DL (6.4-8.2)
[2020-05-15 22:32] LABS: BACTERIA,URINE NEGATIVE /HPF; SQUAMOUS EPITHELIAL CELL,UR 0-2 /HPF
[2020-05-15 22:33] LABS: BILIRUBIN,TOTAL 0.4 MG/DL (0.1-1.0)
[2020-05-15 22:35] LABS: CREATININE SERUM 1.3 MG/DL (0.60-1.30)
--- NOTE | 2020-05-15 22:55 | NUR ---
Spoke to patients who believes that pt may have taken his meal dose of insulin twice; she states that pt has been "forgetting things" recently. She states that this is the second time this has happened twice in the past 2 wks.
--- NOTE | 2020-05-15 22:56 | NUR ---
Dr. Mccoy notified of my conversation with .
[2020-05-15 22:59] VITALS: BP 189/87
--- NOTE | 2020-05-15 23:04 | NUR ---
Daughter called and she was updated regarding patient condition.
--- NOTE | 2020-05-15 23:07 | NUR ---
500ml bag of D10 (started by EMS) complete at this time.
[2020-05-15 23:38] VITALS: BP 170/73
[2020-05-15 23:56] VITALS: BP 179/79
== END 2020-05-15 23:57 | disposition home or self-care (01) ==
LOC: ER 21:34 → EDUNIT# 21:34 → ER 23:57
DX: E11.649 Type 2 diabetes mellitus with hypoglycemia without coma (principal); I10 Essential (primary) hypertension; Z79.4 Long term (current) use of insulin
CPT/HCPCS: 36415; 80053; 81000; 82962; 85025; 93041

== ENCOUNTER → 2020-05-19 | Outpatient (CLI) | payer MEDICARE, BC ==
--- NOTE | 2020-05-19 15:55 | Diagnostic Imaging Report ---
Clinical Indication: Patient status post fall 6 days ago with vertigo. Exam: Axial CT scan of the brain without IV contrast with coronal and sagittal reformatted images. Auto Exposure Controls were utilized during the CT exam to meet ALARA standards for radiation dose reduction. Comparison: None. Findings: There is no evidence of acute cerebral infarct, intracranial hemorrhage, or gross mass effect. There is diffuse brain parenchymal volume loss seen. There is patchy and confluent areas of low-attenuation white matter changes involving both cerebral hemispheres, likely representing chronic small vessel ischemic disease and leukoaraiosis. There is normal mari-white matter distinction. There is no significant midline shift or herniation. There is no evidence of hydrocephalus. The basal cisterns are unremarkable. The skull, extracranial soft tissue, and orbits are unremarkable. There is complete consolidation of the left maxillary sinus with chronic bony sinusitis, thickening and sclerotic changes seen. The remainder of the paranasal sinuses are clear. Temporal bones show no significant abnormality. Impression: 1: There is no acute intracranial process. There is no intracranial hemorrhage or skull fracture. 2: Age related brain parenchymal changes including chronic small vessel ischemic disease and leukoaraiosis. 3: Complete consolidation involving the left maxillary sinus with superimposed chronic sinusitis/bony changes. Dictated by: Dictated on workstation # [id number]
== END ==
LOC: RAD 12:45
PROVIDERS: ATTEND Internal Medicine
DX: I67.81 Acute cerebrovascular insufficiency (principal); F03.90 Unspecified dementia, unspecified severity, without behavioral disturbance, psychotic disturbance, mood disturbance, and anxiety; G93.89 Other specified disorders of brain; J32.9 Chronic sinusitis, unspecified; Z91.81 History of falling
CPT/HCPCS: 70450

== ENCOUNTER → 2020-06-02 | Outpatient (CLI) | payer MEDICARE, BC ==
[~2020-06-02] VITALS: Ht 178 cm; Wt 93.0 kg
[~2020-06-02] MED LIST changes: +REGADENOSON 0.4 MG/5 ML SYR (LEXISCAN) IV ONE
[2020-06-02 08:04] VITALS: BP 204/89
--- NOTE | 2020-06-02 10:47 | Cardiology Stress Test Report ---
Stress Test Report Date of Procedure/Referring: Date of Procedure: Jun 02, 2020 PCP Rogerio Carballo DO Admitting Physician Rogerio Carballo DO Indications: Coronary artery disease Baseline Vital Signs Vital Signs Date Time Temp Pulse Resp B/P (MAP) Pulse Ox O2 Delivery O2 Flow Rate FiO2 06/02/20 08:04 50 204/89 (939) 98 Summary: Patient receive a resting and stress dose of Myoview, images were acquired and reviewed in the short axis view, horizontal long axis view and vertical long axis view. TID: 1.18 SSS: 2 SDS: 2 EF: 57 1. No ischemia or infarction on SPECT images 2. Normal left ventricular size, EF 57 percent SAM SANCHEZ MD Jun 02, 2020 10:47
== END ==
LOC: CARD 06:40
PROVIDERS: ATTEND Internal Medicine
DX: I25.10 Atherosclerotic heart disease of native coronary artery without angina pectoris (principal)
CPT/HCPCS: 78452; 93017; A9502

== ENCOUNTER → 2021-02-05 | Outpatient (CLI) | payer MEDICARE, BC ==
--- NOTE | 2021-02-05 09:34 | Diagnostic Imaging Report ---
EXAMINATION: US Abdomen limited. TECHNIQUE: Multiple real-time grayscale images were obtained over the right upper quadrant in various projections. HISTORY: Right upper quadrant abdominal pain. COMPARISON: Gallbladder ultrasound 05/20/2018 FINDINGS: Pancreas: The visualized portions of the pancreas are normal. Liver: The visualized right lobe of the liver is normal in echogenicity and contour. The left lobe is obscured. No focal lesions are seen. The portal vein is patent with hepatopetal flow. Gallbladder and biliary tree: Gallbladder is normal without wall thickening, pericholecystic fluid, or sonographic Goldberg sign. There is no biliary ductal dilation. The common duct is nonvisualized secondary to overlying bowel gas. Right kidney: The right kidney is normal without hydronephrosis. Aorta and IVC: The visualized aorta is unremarkable. The IVC is nonvisualized secondary to overlying bowel gas. Fluid: No ascites is seen. IMPRESSION: 1. Unremarkable right upper quadrant ultrasound. Dictated by: Dictated on workstation # [id number]
== END ==
LOC: RAD 08:15
PROVIDERS: ATTEND Internal Medicine
DX: R10.11 Right upper quadrant pain (principal); R19.7 Diarrhea, unspecified
CPT/HCPCS: 76705

== ENCOUNTER → 2021-11-12 | Outpatient (CLI) | payer MEDICARE, BC ==
[~2021-11-12] VITALS: Ht 177 cm; Wt 91.0 kg
[~2021-11-12] MED LIST changes: -CATHETER FLUSH 10 ML SYR IV PRN; +CATHETER FLUSH 10 ML SYR IVP PRN
[2021-11-12 08:00] VITALS: BP 190/90
--- NOTE | 2021-11-12 11:12 | Cardiology Stress Test Report ---
Stress Test Report Date of Procedure/Referring: Date of Procedure: Nov 12, 2021 PCP Real Carballo DO Admitting Physician Real Carballo DO Indications: CAD Baseline Vital Signs Vital Signs Date Time Temp Pulse Resp B/P (MAP) Pulse Ox O2 Delivery O2 Flow Rate FiO2 11/12/21 08:00 55 190/90 (123) Summary: Patient receive a resting and stress dose of Myoview, images were acquired and reviewed in the short axis view, horizontal long axis view and vertical long axis view. TID: 1.18 SSS: 2 SDS: 2 EF: 57 1. No significant ischemia or infarction on SPECT images 2. Normal left ventricular size, EF 57% Copy Copies To 1: REAL CARBALLO BASHAR J MD Nov 12, 2021 11:12
== END ==
LOC: CARD 07:00
PROVIDERS: ATTEND Internal Medicine
DX: I25.10 Atherosclerotic heart disease of native coronary artery without angina pectoris (principal)
CPT/HCPCS: 78452; 93017; A9502

== ENCOUNTER → 2022-02-15 | Outpatient (CLI) | payer MEDICARE, BC | LOC: LAB 12:05 | PROVIDERS: ATTEND Internal Medicine | DX: T58.2X1A Toxic effect of carbon monoxide from incomplete combustion of other domestic fuels, accidental (unintentional), initial encounter (principal) | CPT/HCPCS: 82375 ==

== ENCOUNTER → 2023-04-18 | Outpatient (CLI) | payer MEDICARE, BC ==
[~2023-04-18] VITALS: Ht 177 cm; Wt 91.0 kg
[~2023-04-18] MED LIST changes: -REGADENOSON 0.4 MG/5 ML SYR (LEXISCAN) IV ONE; +REGADENOSON 0.4 MG/5 ML SYR IV ONE
[2023-04-18 08:00] VITALS: BP 151/69
--- NOTE | 2023-04-18 09:38 | Cardiology Stress Test Report ---
Stress Test Report Date of Procedure/Referring: Date of Procedure: Apr 18, 2023 PCP Real Carballo DO Admitting Physician Admitting Physician: Attending Physician: Real Carballo DO Baseline Vital Signs Vital Signs Date Time Temp Pulse Resp B/P (MAP) Pulse Ox O2 Delivery O2 Flow Rate FiO2 04/18/23 08:00 48 151/69 (96) 98 Summary: Patient receive a resting and stress dose of Myoview, images were acquired and reviewed in the short axis view, horizontal long axis view and vertical long axis view. TID: 1.05 SSS: 1 SDS: 1 EF: 63 No ischemia or infarction noted on SPECT images Normal left ventricular size, ejection fraction 63% Copy Copies To 1: REAL CARBALLO BASHAR J MD Apr 18, 2023 09:38
== END ==
LOC: CARD 07:08
PROVIDERS: ATTEND Internal Medicine
DX: I25.10 Atherosclerotic heart disease of native coronary artery without angina pectoris (principal)
CPT/HCPCS: 78452; 93017; A9502